=== PATIENT | female | born 1995 | race Caucasian/White ===

== ENCOUNTER 2019-07-20 09:28 | Emergency (ER) | payer BC ==
[2019-07-20 09:42] VITALS: BP 128/74
[2019-07-20 10:15] LABS: APPEARANCE,URINE CLEAR; BILIRUBIN,URINE NEGATIVE (NEGATIVE); COLOR,URINE YELLOW; GLUCOSE, URINE NEGATIVE (NEGATIVE); KETONES,URINE NEGATIVE (NEGATIVE); LEUKOCYTE ESTERASE,URINE SMALL (NEGATIVE); NITRITE,URINE NEGATIVE (NEGATIVE); PROTEIN,URINE NEGATIVE (NEGATIVE); URINE SPECIFIC GRAVITY 1.005; UROBILINOGEN,URINE NEGATIVE mg/dL (<2.0)
--- NOTE | 2019-07-20 10:57 | ER Document Report ---
Entered by ROMIE TURNER SCRIBE 07/20/19 1029 Acting as scribe for:VIRGEN BONILLA MD ED GI/ - General Chief Complaint: Abdominal Cramping Stated Complaint: CRAMPING Time Seen by Provider: 07/20/19 10:19 Mode of Arrival: Ambulatory Information source: Patient Notes: 24-year-old female currently with her last menstrual period being on June 16 that presents to the emergency department today with complaints of left lower quadrant cramping for the last 4 days. Patient states the cramping is unchanged since onset and intermittent. Patient is taking vitamins. Patient has not had an ultrasound during this . Patient does not know her blood type but states she has never received Rhogam during previous pregnancies. Patient denies any vaginal bleeding. - Related Data Allergies/Adverse Reactions: No Known Allergies Allergy (Verified 07/20/19 09:42) Past Medical History - General Information source: Patient - Social History Smoking Status: Never Smoker Cigarette use (# per day): No Frequency of alcohol use: None Drug Abuse: None Lives with: Family Family History: Reviewed & Not Pertinent Patient has suicidal ideation: No Patient has homicidal ideation: No Review of Systems - Review of Systems Constitutional: No symptoms reported EENT: No symptoms reported Cardiovascular: No symptoms reported Respiratory: No symptoms reported Gastrointestinal: No symptoms reported Genitourinary: No symptoms reported Female Genitourinary: See HPI, Last menstrual period - Jun.16, . denies: Vaginal bleeding Musculoskeletal: No symptoms reported Skin: No symptoms reported Hematologic/Lymphatic: No symptoms reported Neurological/Psychological: No symptoms reported -: Yes All other systems reviewed and negative Physical Exam - Vital signs Vitals: Temp Pulse Resp BP Pulse Ox 98 F 63 14 128/74 H 99 07/20/19 09:38 07/20/19 09:38 07/20/19 09:38 07/20/19 09:38 07/20/19 09:38 - Notes Notes: Physical Exam: General: Alert, appears well. HEENT: Normocephalic. Atraumatic. PERRL. Extraocular movements intact. Oropharynx clear. Neck: Supple. Non-tender. Respiratory: No respiratory distress. Clear and equal breath sounds bilaterally. Cardiovascular: Regular rate and rhythm. Abdominal: Mild lower abdominal tenderness with palpation slightly worsened in the LLQ. No distension. Normal Bowel Sounds. Back: No gross abnormalities. Extremities: Moves all four extremities. Upper extremities: Normal inspection. Normal ROM. Lower extremities: Normal inspection. No edema. Normal ROM. Neurological: Normal cognition. AAOx4. Normal speech. Psychological: Normal affect. Normal Mood. Skin: Warm. Dry. Normal color. Course - Re-evaluation Re-evalutation: 07/20/19 12:32 hCG is 202. Her first home test was done on 07/17/2019. Her last menstrual period was 06/16/2019, she states her cycles are usually 30 days. She does see [facility] and that is where she plans to follow-up. - Vital Signs Vital signs: Temp Pulse Resp BP Pulse Ox 98 F 63 14 128/74 H 99 07/20/19 09:38 07/20/19 09:38 07/20/19 09:38 07/20/19 09:38 07/20/19 09:38 - Laboratory Result Diagrams: 07/20/19 10:48 07/20/19 10:48 Laboratory results interpreted by me: 07/20/19 07/20/19 09:48 10:48 BUN 5 L Total Protein 8.4 H Beta HCG, Quant 202.84 H Ur Leukocyte Esterase SMALL H Urine HCG, Qual POSITIVE H - Diagnostic Test Radiology reviewed: Image reviewed, Reports reviewed - Ultrasound shows left corpus luteum cyst, no intrauterine . Discharge - Discharge Clinical Impression: Pelvic pain affecting in first trimester, antepartum, Corpus luteum cyst of left ovary Condition: Stable Disposition: HOME, SELF-CARE Additional Instructions: Your pelvic pain is probably due to the left ovarian corpus luteum cyst of . Your hormone level was quite low at 202.84 You should follow-up with your [facility] doctor in 2 days to repeat your hormone level. Take copies of the ultrasound report and the lab work with you to your appointment. RETURN TO THE EMERGENCY ROOM IF ANY NEW OR WORSENING SYMPTOMS. Scribe Attestation: 07/20/19 12:36 I personally performed the services described in the documentation, reviewed and edited the documentation which was dictated to the scribe in my presence, and it accurately records my words and actions. I personally performed the services described in the documentation, reviewed and edited the documentation which was dictated to the scribe in my presence, and it accurately records my words and actions.
[2019-07-20 11:19] LABS: ABSOLUTE BASOPHILS # (AUTO) 0.1 10^3/uL (0.0-0.2); ABSOLUTE EOSINOPHILS # (AUTO) 0.1 10^3/uL (0.0-0.6); ABSOLUTE LYMPHOCYTES (AUTO) 2.2 10^3/uL (0.5-4.7); ABSOLUTE MONOCYTES (AUTO) 0.5 10^3/uL (0.1-1.4); BASOPHILS % (AUTO) 0.6 % (0-2); EOSINOPHILS % (AUTO) 0.8 % (0-6); HEMATOCRIT 43.3 % (36.0-47.0); HEMOGLOBIN 14.9 g/dL (12.0-15.5); LYMPHOCYTES % (AUTO) 25.1 % (13-45); MEAN CORPUSCULAR HEMOGLOBIN 28.4 pg (27.0-33.4); MEAN CORPUSCULAR HGB CONC 34.4 g/dL (32.0-36.0); MEAN CORPUSCULAR VOLUME 83 fl (80-97); MONOCYTES % (AUTO) 6.1 % (3-13); PLATELET COUNT 277 10^3/uL (150-450); RED BLOOD COUNT 5.24 10^6/uL (3.72-5.28); RED CELL DISTRIBUTION WIDTH 13.1 % (11.5-14.0); SEGMENTED NEUTROPHILS % (AUTO) 67.4 % (42-78); TOTAL CELLS COUNTED % (AUTO) 100 %; WHITE BLOOD COUNT 8.9 10^3/uL (4.0-10.5)
[2019-07-20 11:40] LABS: ALBUMIN 4.7 g/dL (3.5-5.0); ALKALINE PHOSPHATASE 73 U/L (38-126); ANION GAP 11 (5-19); ASPARTATE AMINO TRANSFERASE 18 U/L (14-36); BILIRUBIN,TOTAL 0.7 mg/dL (0.2-1.3); BLOOD UREA NITROGEN 5 mg/dL (7-20); CALCIUM 9.7 mg/dL (8.4-10.2); CARBON DIOXIDE 25 mmol/L (22-30); CHLORIDE 105 mmol/L (98-107); GLUCOSE 88 mg/dL (75-110); POTASSIUM 4.4 mmol/L (3.6-5.0); TOTAL PROTEIN 8.4 g/dL (6.3-8.2)
--- NOTE | 2019-07-20 12:12 | RADIOLOGY REPORT (SQ) ---
EXAM DESCRIPTION: U/S OB TRANSVAGINAL W/O DOP COMPLETED DATE/TIME: 07/20/2019 12:01 pm REASON FOR STUDY: LMP 06/16/19 left pelvic cramping COMPARISON: None. TECHNIQUE: Transvaginal static and realtime grayscale images acquired of the pelvis. Additional jay cted spectral and color Doppler images recorded. All images stored on PACs. bHCG: Pending CLINICAL DATES: LMP 06/16/2019. 4 weeks 6 days. LIMITATIONS: None. FINDINGS: No intrauterine gestation is identified at this time. The endometrium measures 1.8 cm. UTERUS: No masses or anomalies. 7.5 x 5.7 x 4.3 cm. CERVICAL LENGTH: 1.9 cm. Closed. RIGHT ADNEXA: Normal ovary with normal vascular flow. No adnexal free fluid. No adnexal masses. LEFT ADNEXA: There is a complex area measuring 12 x 16 x 21 mm. There is also a 13 x 8 x 11 mm simpl e cyst. No adnexal free fluid. No adnexal masses. FREE FLUID: Free fluid is present. OTHER: No other significant finding. IMPRESSION: No intrauterine gestation is identified at this time. Possible corpus luteum on the lef t ovary. Follow-up as clinically indicated. There is free fluid. TECHNICAL DOCUMENTATION: JOB ID: [id number] – [employer]- All Rights Reserved rev Reading location - IP/workstation name: [email or web address]
== END 2019-07-20 12:47 | disposition home or self-care (01) ==
LOC: ER 09:28
DX: O34.81 Maternal care for other abnormalities of pelvic organs, first trimester (principal); N83.12 Corpus luteum cyst of left ovary; R10.32 Left lower quadrant pain; R10.814 Left lower quadrant abdominal tenderness; O26.891 Other specified pregnancy related conditions, first trimester; Z3A.01 Less than 8 weeks gestation of pregnancy
CPT/HCPCS: 36415; 76817; 80053; 81001; 81025; 84702; 85025; 86900; 86901; 99284